=== PATIENT | female | born 1980 | race Caucasian/White ===

== ENCOUNTER → 2017-02-08 | Outpatient (CLI) | payer MEDICAID ==
[~2017-02-08] MED LIST: PROBIOTIC1 EAC2 PO; THERA-VITE W/ B1 TAB PO; XOPENEX HF45 MCG/INH INH; XYZAL5 MG PO
== END | disposition disaster alternative care site (69) ==
LOC: LGSOS 11:15
DX: R06.02 Shortness of breath (principal)

== ENCOUNTER → 2017-03-10 | Outpatient (CLI) | payer MEDICAID ==
--- NOTE | ~2017-03-10 | ECHO ---
Stress Echocardiography Report Demographics Patient Name CATHERINE SOLANO Date of Study 03/10/2017 Patient Number [id number] Visit Number [id number] Date of 1980 Room Number Gender Female Number Age 36 year(s) Referring Mark Hwang Mash Tub Cooker Operator Vicenta Obrien RVT Physician Physician Interpreting Mark Hwang Sludge Mill Operator Physician Supervising Ordering Mark Hwang MD/PKP Physician Nurse Vignesh Dai RN Stress Environmental Officer Conclusions Summary Duration: 6:53 mins. Achieved: 96% MPHR. DP :21 K. METs :8.3. No chest pain. Reason for termination: Fatigue and SOB. EKG: No ischemia. PVCs and bigeminal PVCs during recovery. DTS: 7 (Low risk). ECHO: No inducible ischemia.LV dimensions did decrease appropriately. Procedure Type of Study Stress procedure:Treadmill Stress Echo w/o Contrast. Procedure Date Date: 03/10/2017 Start: 02:51 PM Study Location: Echo Lab Technical Quality: Adequate visualization Indications:Palpitations. Appropriate Use Criteria: 9 Patient Status: Routine HR: 77 bpm Rest Resting HR:77 bpm Stress Stress Type: Exercise Predicted HR: 182 bpm Contractility Score Rest LV regional wall motion:(0-Non visualized 1-Normal 2-Hypokinesis 3-Akinesis 4-Dyskinesis 5-Aneurysm) Signature dtt: Eri Flores dtd: 03/10/17 [id number] Physician Self Edit
--- NOTE | ~2017-03-10 | ECHO ---
Transthoracic Echocardiography Report (TTE) Demographics Patient Name CATHERINE SOLANO Date of Study 03/10/2017 Patient Number [id number] Visit Number [id number] Date of 1980 Room Number Gender Female Number Age 36 year(s) Referring Mark Hwang Interactive Producer Vicenta Obrien RVT Physician Physician Interpreting Mark Hwang Bottle Tester Physician Supervising Ordering Mark Hwang MD/MLP Physician Nurse Stress Cashier Courtesy Booth Conclusions Contractility Score Summary Normal Left Ventricular contractility was noted. Summary Normal cardiac chamber sizes. No significant valvular abnormalities. Procedure Type of Study TTE procedure:2D Echocardiogram. Procedure Date Date: 03/10/2017 Start: 02:21 PM Study Location: Echo Lab Technical Quality: Adequate visualization Indications:Palpitations. Appropriate Use Criteria: 9 Patient Status: Routine HR: 70 bpm BP: 124/74 mmHg M-Mode/2D Measurements LV Diastolic Dimension: 4.94 cm LV Systolic Dimension: 3.03 cm LV Septum Diastolic: 1.05 cm LV PW Diastolic: 0.93 cm AO Root Dimension: 2.4 cm Cardiac Output: 3.52 l/min AV Cusp Separation: 1.9 cm RV Diastolic Dimension: 2.8 cm LVOT: 2 cm LVOT VTI: 16 cm RV Base: 2.63 cm LV Stroke volume: 50.24 ml RV Length: 5.29 cm TAPSE: 1.75 cm TDI-S': 11.7 cm/s Doppler Measurements AV Peak Velocity: 1.02 m/s MV Peak E-Wave: 0.69 m/s AV Peak Gradient: 4.16 mmHg MV Peak A-Wave: 0.42 m/s AV Mean Gradient: 2 mmHg MV E/A Ratio: 1.65 LVOT Peak Velocity: 0.86 m/s MV P1/2t: 81 msec TR Gradient:16.97 mmHg PV Peak Velocity: 0.91 m/s Estimated RAP:10 mmHg PV Peak Gradient: 3.31 mmHg Estimated RVSP: 27 mmHg Estimated PASP: 26.97 mmHg E' Septal Velocity: 0.09 m/s A' Septal Velocity: 0.11 m/s E' Lateral Velocity: 0.09 m/s A' Lateral Velocity: 0.11 m/s Findings Left Ventricle Normal left ventricle size and function. Diastolic assessment reveals normal relaxation. Right Ventricle Normal right ventricle structure and function. Left Atrium Normal left atrial size. Right Atrium IVC measures 1.66 cm with inspiratory collapse. Mitral Valve Normal mitral valve structure and function. Trivial mitral regurgitation by color Doppler. Aortic Valve Normal aortic valve structure and function. Tricuspid Valve Trivial tricuspid regurgitation by color Doppler. Pulmonic Valve Normal pulmonic valve structure and function. Pericardial Effusion No evidence of pericardial effusion. Miscellaneous Visualized portions of the aortic root and ascending aorta appear normal in size. Pleural Effusion No evidence of pleural effusion. Contractility Score LV regional wall motion:(0-Non visualized 1-Normal 2-Hypokinesis 3-Akinesis 4-Dyskinesis 5-Aneurysm) Signature dtt: Eri lFores dtd: 03/10/17 1427 Physician Self Edit
[2017-03-10 15:45] LABS: ANION GAP 11.8 (10.0-19.0); BLOOD UREA NITROGEN 12 mg/dL (6-24); CALCIUM 8.2 mg/dL (8.5-10.5); CHLORIDE 107 mMol/L (96-110); CO2 24 mMol/L (22-32); CREATININE 0.8 mg/dL (0.5-1.1); ESTIMATED GFR (MDRD EQUATION) > 60; POTASSIUM 3.8 mMol/L (3.7-5.1); SODIUM 139 mMol/L (135-145)
== END | disposition disaster alternative care site (69) ==
LOC: GCAR 13:46 → GRAD 03-11 07:00
PROVIDERS: Internal Medicine Interventional Cardiology
DX: R00.2 Palpitations (principal)

== ENCOUNTER 2017-06-01 18:46 | Emergency (ER) | payer MEDICAID ==
--- NOTE | ~2017-06-01 | ER ---
PATIENT'S NAME: CATHERINE SOLANO [facility] AGE: 36 Y [address] ROOM: [place] [address] LOCATION: [facility] ADMIT DATE: 06/01/2017 ER/Outpatient Report DISCHARGE DATE: 06/01/2017 FAMILY PHYSICIAN: Lakia Dietrich ATTENDING PHYSICIAN: Karan Cerrato Time of patient's arrival: 1846 hours. Time of patient's evaluation: 1855 hours. CHIEF COMPLAINT: Right knee pain. HISTORY OF PRESENT ILLNESS: This is a 36-year-old female, who presents to the ER with a right knee pain. She states that she initially injured it a few weeks ago and then was bending down this last Wednesday picking up a box and felt a pop in her knee. She went to see a chiropractor prior to arrival and felt a pop and then had excruciating pain. She states that she has had pain on all aspects of her knee. She denies any fall or any other problems at this time. ALLERGIES: 1. AUGMENTIN. 2. BIAXIN. 3. KEFLEX. 4. BACTRIM. 5. CHLORAPREP. 6. LATEX. MEDICATIONS: Please see medication list in nurse's notes. PAST MEDICAL HISTORY: Cholecystectomy, irregular heart rhythm, possible mitral prolapse, right wrist surgery, left and right knee surgeries. She has a lump removed from her right breast and a cyst removed. SOCIAL HISTORY: Denies smoking, drug, or alcohol use. REVIEW OF SYSTEMS: CONSTITUTIONAL: Denies any change in weight or fatigue. MUSCULOSKELETAL: Complaining right knee pain. HEME: No easy bruising or bleeding. No lesions or rashes. PATIENT'S NAME: CATHERINE SOLANO [facility] AGE: 36 Y [address] ROOM: [place] [address] LOCATION: [facility] ADMIT DATE: 06/01/2017 ER/Outpatient Report DISCHARGE DATE: 06/01/2017 FAMILY PHYSICIAN: Lakia Dietrich ATTENDING PHYSICIAN: Karan Cerrato PHYSICAL EXAMINATION: VITAL SIGNS: Weight 85.4 kg taken, blood pressure is 132/73, pulse 95, respirations 18, temperature 98.8 degrees tympanically, saturations 98% on room air. [place] Coma Score is 15. GENERAL: Alert, calm, well-developed female, in mild distress. EXTREMITIES: No clubbing or cyanosis. She does have swelling noted to the right knee. She has tenderness over all the anterior aspects of her knee, lateral and medial. She has no tenderness over the tibial tuberosity. She has full range of motion in all other limbs. She had decreased range of motion of her right knee secondary to the significant pain. LABORATORY DATA: None were done. X-RAYS: X-rays of the right knee shows no obvious fracture. IMPRESSION: Right knee injury. ASSESSMENT AND PLAN: We did place the patient in a knee immobilizer. We will have her ambulate with crutches. She has iced and elevate the leg. We did give her some ibuprofen here for discomfort and I will send her home with prescription for [place] to use for severe pain. She may alternate that pain medication as needed with ibuprofen. I would like her to follow up with her Orthopedic of choice in the next few days for followup care. The patient understands and agrees with care. ROCIO RICHARDS PA-C FOR MD JOVANA TOMLIN/mel /[id number] d: t: 06/04/17 1215, OUTPATIENT REPORT
== END 2017-06-01 20:02 | disposition disaster alternative care site (69) ==
LOC: GACC 18:46
PROC: 2W3QX1Z Immobilization of Right Lower Leg using Splint (ICD-10-PCS; principal; 2017-06-01)
DX: S89.91XA Unspecified injury of right lower leg, initial encounter (principal); Z88.1 Allergy status to other antibiotic agents; Z88.8 Allergy status to other drugs, medicaments and biological substances; Z91.040 Latex allergy status; Z90.49 Acquired absence of other specified parts of digestive tract; Z98.890 Other specified postprocedural states; Z79.899 Other long term (current) drug therapy; X50.0XXA Overexertion from strenuous movement or load, initial encounter